=== PATIENT | female | born 1960 | race African-American/Black ===

== ENCOUNTER → 2022-04-01 | Outpatient (CLI) | payer BC ==
[~2022-04-01] MED LIST: LIDOCAINE HCL 1% 10 MG/ML 10ML VIAL ONE; SODIUM BICARBONATE 4% (2.4MEQ) 5ML VIAL IV ONE
== END | disposition home or self-care (01) ==
LOC: RAD 10:17
DX: E04.2 Nontoxic multinodular goiter (principal); Z79.899 Other long term (current) drug therapy
CPT/HCPCS: 10005; 10006; J3490; Z7610

== ENCOUNTER → 2022-08-03 | Day surgery (SDC) | payer BC | END | disposition home or self-care (01) | LOC: RAD 09:25 | DX: E04.1 Nontoxic single thyroid nodule (principal); Z79.899 Other long term (current) drug therapy | CPT/HCPCS: 10005; 88172; 88173; J3490 ==